=== PATIENT | male | born 1995 | race Caucasian/White ===

== ENCOUNTER 2018-04-24 11:06 | Emergency (ER) | payer MEDICAID ==
[~2018-04-24] VITALS: Ht 170.2 cm; Wt 68.2 kg
[2018-04-24 11:15] VITALS: BP 127/70
== END 2018-04-24 13:17 | disposition left against medical advice (07) ==
LOC: ER 11:06
DX: L60.0 Ingrowing nail (principal); M79.674 Pain in right toe(s); F17.200 Nicotine dependence, unspecified, uncomplicated
CPT/HCPCS: 99281

== ENCOUNTER 2023-03-26 19:43 | Emergency (ER) | payer MEDICAID ==
[~2023-03-26] VITALS: Ht 172.7 cm; Wt 72.7 kg
[2023-03-26 20:28] VITALS: BP 112/74
[2023-03-26] MEDS ORDERED: AMOX-101 PO (21:13)
[2023-03-26] MEDS ORDERED: IBUP-1986 PO (21:13)
[2023-03-26] MEDS ORDERED: amoxicillin 250mg capsule PO ONE (21:15)
== END 2023-03-26 21:29 | disposition home or self-care (01) ==
LOC: ER 19:44
DX: K08.89 Other specified disorders of teeth and supporting structures (principal)
CPT/HCPCS: 99283

== ENCOUNTER 2023-04-29 17:26 | Emergency (ER) | payer MEDICAID ==
[~2023-04-29] VITALS: Ht 172.7 cm; Wt 71.4 kg
[~2023-04-29 17:26] MED LIST: IBUP-1986 PO
[2023-04-29 17:44] VITALS: BP 109/65; PULSE 78; RESP 18; TEMP 98.2; O2SAT 97
[2023-04-29] MEDS ORDERED: TETanus/Pertussis (Acell)/Diphther VAC/PF (Tdap-Adult) 0.5ml syringe IMVAC ONE (19:15)
[2023-04-29] MEDS ORDERED: bacitracin 15gm ointment TP ONE (19:15)
[2023-04-29] MEDS ORDERED: LIDOcaine 1% w/EPI 1:100,000 inj. MDV 50 ML VIAL SQ ONE (19:15)
[2023-04-29] MEDS ORDERED: ketorolac trometh. 30mg/ml inj. IM ONE (21:40)
== END 2023-04-29 22:00 | disposition home or self-care (01) ==
LOC: ER 17:27
DX: S81.011A Laceration without foreign body, right knee, initial encounter (principal); X58.XXXA Exposure to other specified factors, initial encounter; Y93.89 Activity, other specified; Y92.89 Other specified places as the place of occurrence of the external cause; Y99.8 Other external cause status
CPT/HCPCS: 12002; 73590; 73630; 90471; 90715; 96372; 99284; A6222; J1885; J7030; A6449

== ENCOUNTER 2023-05-13 16:01 | Emergency (ER) | payer MEDICAID ==
[~2023-05-13] VITALS: Ht 172.7 cm; Wt 90.0 kg
[2023-05-13 16:06] VITALS: BP 132/74; PULSE 88; RESP 18; TEMP 97.8; O2SAT 98
== END 2023-05-13 18:06 | disposition left against medical advice (07) ==
LOC: ER 16:02
DX: Z48.02 Encounter for removal of sutures (principal); Z53.21 Procedure and treatment not carried out due to patient leaving prior to being seen by health care provider
CPT/HCPCS: 99281

== ENCOUNTER 2024-03-27 23:49 | Emergency (ER) | payer MEDICAID ==
[~2024-03-27] VITALS: Ht 170.2 cm; Wt 65.9 kg
[2024-03-27 23:56] VITALS: TEMP 98
[2024-03-28] MEDS ORDERED: PENI500T2 PO (00:33)
[2024-03-28] MEDS: penicillin V potassium 500mg tablet PO ONE (00:45)
[2024-03-28 00:48] VITALS: BP 118/74; PULSE 63; RESP 14; O2SAT 98
== END 2024-03-28 00:51 | disposition home or self-care (01) ==
LOC: ER 23:50
DX: K08.89 Other specified disorders of teeth and supporting structures (principal); Z79.1 Long term (current) use of non-steroidal anti-inflammatories (NSAID); Z72.89 Other problems related to lifestyle
CPT/HCPCS: 99283

== ENCOUNTER 2024-12-12 22:28 | Emergency (ER) | payer MEDICAID ==
[~2024-12-12] VITALS: Ht 172.7 cm; Wt 63.6 kg
[2024-12-12 22:32] VITALS: TEMP 98
[2024-12-12] MEDS ORDERED: MIDAZolam 1 MG/ML 5ML VIAL IV ONE (22:40)
[2024-12-12] MEDS: normal saline 1000ML IV soln IVB STA (22:44)
[2024-12-12] MEDS: epiNEPHrine 1 mg/ml inj SQ ONE (22:45)
[2024-12-12] MEDS: famotidine/PF 10 mg/ml inj IV ONE (22:46)
[2024-12-12] MEDS: methylPREDNISolone sod succ 125mg/2ml vial IV ONE (22:47)
[2024-12-12] MEDS: diphenhydrAMINE 50 mg/ml inj IV ONE (22:47)
[2024-12-12] MEDS ORDERED: NO HOME MEDS (22:55)
[2024-12-12] MEDS: triamcinolone acetonide 40mg/ml inj IM ONE (23:02)
[2024-12-13] VITALS: BP 113/73; PULSE 64; RESP 13; O2SAT 98
[2024-12-13] MEDS: midazolam 1 mg/ML 2ml injection IV ONE (00:24)
[2024-12-13] MEDS ORDERED: EPIN0.3P3 IM (00:49)
== END 2024-12-13 00:54 | disposition home or self-care (01) ==
LOC: ER 22:29
DX: T78.1XXA Other adverse food reactions, not elsewhere classified, initial encounter (principal); R22.0 Localized swelling, mass and lump, head; Z72.89 Other problems related to lifestyle; X58.XXXA Exposure to other specified factors, initial encounter
CPT/HCPCS: 71045; 96361; 96372; 96374; 96375; 99284; J0171; J1200; J2919; J3301; J3490; J7030